=== PATIENT | male | born 1945 | race Caucasian/White ===

== ENCOUNTER 2017-07-04 00:53 | Observation (INO) | payer OTHER ==
--- NOTE | 2017-07-04 00:54 | EDPHY ---
H & P HPI/ROS: HPI CHIEF COMPLAINT: Hypertension, asymptomatic HISTORY OF PRESENT ILLNESS: Patient very pleasant 72-year-old male, presents emergency room with hypertension. States he finished dinner around 9:00 p.m. he felt fine. Decided to take his blood pressure noticed 190 systolic. Denies any chest pain shortness of breath or headache denies focal weakness numbness or tingling. Patient reports that he checked his blood pressure multiple times and soft blood pressures in the 190s. He tells me his normal blood pressure 1 30s. Past Medical History: Denies medical history Past Surgical History: Denies surgical history Social History: Denies daily use of drugs alcohol tobacco products Family History: Noncontributory ROS REVIEW OF SYSTEMS: A comprehensive 10 point review of systems is otherwise negative aside from elements mentioned in the history of present illness. Exam Constitutional appears well nontoxic triage nursing summary reviewed, vital signs reviewed, awake/alert. Eyes normal conjunctivae and sclera, EOMI, PERRLA. HENT normal inspection, atraumatic, moist mucus membranes, no epistaxis, neck supple/ no meningismus, no raccoon eyes. Respiratory clear to auscultation bilaterally, normal breath sounds, no respiratory distress, no wheezing. Cardiovascular rate normal, regular rhythm, no murmur, no edema, distal pulses normal. Gastrointestinal soft, non-tender, no rebound, no guarding, normal bowel sounds, no distension, no pulsatile mass. Genitourinary no CVA tenderness. Musculoskeletal no midline vertebral tenderness, full range of motion, no calf swelling, no tenderness of extremities, no meningismus, good pulses, neurovascularly intact. Skin pink, warm, & dry, no rash, skin atraumatic. Neurologic awake, alert and oriented x 3, AAOx3, moves all 4 extremities equally, motor intact, sensory intact, CN II-XII intact, normal cerebellar, normal vision, normal speech. Psychiatric normal mood/affect. Heme/Lymph/Immune no lymphadenopathy. Differential Diagnosis: Includes but is not limited to in a particular order asymptomatic hypertension, central hypertension, hypertensive urgency, hypertensive emergency Medical Decision Making: Plan for this patient full youth nutritional monitor, IV establishment check basic blood work, EKG, troponin. Will monitor see his blood pressure improved Re-evaluation: EKG interpretation by me on record in [employer] system. Impression time of EKG 1:34 a.m., this is sinus bradycardia rate of 44 I do not appreciate acute ischemic changes specifically no ST elevation ST depression T-wave abnormalities. Unremarkable EKG for except for bradycardia. 0140AM: Patient reports to me that he does have a heart rate of months 40s to 50s. Chemistry panel resulted. Troponin negative, glucose 79, creatinine 0.7, BUN 17 , calcium 9.1, total bili 2, AST 31, alk-phos 60, ALT 41 total protein 6.6. CBC has resulted: This shows white count 7.35, hemoglobin 15.9, hematocrit 48.1 , platelets 198 0249AM: I did re-evaluate the patient this time is resting comfortably has no complaints again denies chest pain headaches or shortness of breath. No numbness tingling. Vital signs at this time is blood pressure is currently 177/ 86, heart rate 45, pulse ox 95% on room air. Given how high his blood pressure is here in emergency room will give him 5 mg p.o. Norvasc. Re-evaluate. 0502AM: I did re-evaluate the patient this time. Blood pressure currently 192/ 86 heart rate 46. He did come down slightly with 5 mg p. o. nor back however he is back up to 100s. Will give him 10 mg IV hydralazine at this time. 0623AM: I did re-evaluate the patient. His blood pressure is down to 160 systolic. He is requesting be discharged home. He tells me feels fine has no complaints. I recommend that he keeps a good blood pressure log twice a day 9: 00 a.m. 9:00 nine p.m. he takes his blood pressure. Keeps a lot of his readings and presents this to his primary care doctor. I will start him on Norvasc 5 mg. if he finds blood pressure too low he should stop this medication otherwise he should continue if he has hypertension. Follow up with his primary care doctor keep a blood pressure log. Additionally understands return emergency room if develops worsening symptoms includes chest pain, headache, very high her blood pressure 1 90s. He is agreeable for this. He would prefer to go home. I did offer admission for observation today for his blood pressure however he has declined. He rather go home start Norvasc follow up with his primary care doctor however he understands return emergency room if he develops worsening symptoms questions or concerns. Source: Patient, EMS - Medical/Surgical History Hx Asthma: No Hx Chronic Respiratory Disease: No Hx Diabetes: No Hx Cardiac Disease: No Hx Renal Disease: No Hx Cirrhosis: No Hx Alcoholism: No Hx HIV/AIDS: No Hx Splenectomy or Spleen Trauma: No Other PMH: HYPERLIPIDEMIA Constitutional: Initial Vital Signs Heart Rate 56 L 07/04/17 05:59 Respiratory Rate 16 07/04/17 05:59 Blood Pressure 166/71 H 07/04/17 05:59 O2 Sat (%) 97 07/04/17 05:59 O2 Delivery Mode Room Air Allergies/Adverse Reactions: No Known Allergies Allergy (Unverified 11/01/13 11:16) Home Medications: Medication Instructions Recorded Cephalexin [Keflex (RX)] 500 mg PO QID #28 cap 11/01/13 Hydrocodone/APAP 5/325 [[place] 1 - 2 tab PO Q4 #12 tab 11/01/13 5/325 (RX)] Lipitor 10 mg (RX) 11/01/13 Sulfamethox/Tmp 800/160 mg 1 tab PO BID #14 tab 11/01/13 [Bactrim Ds (RX)] amLODIPine BESYLATE [Norvasc 5 mg 5 mg PO DAILY #30 tab 07/04/17 (*)] Medical Decision Making - Data Points Laboratory Results: Laboratory Results 07/04/17 00:55 07/04/17 01:00 07/04/17 07/04/17 07/04/17 02:05 01:00 00:55 WBC 7.35 10^3/uL 10^3/uL (3.80-9.50) RBC 5.19 10^6/uL 10^6/uL (4.40-6.38) Hgb 15.9 g/dL g/dL (13.7-17.5) POC Hgb 15.6 gm/dL gm/dL (13.7-17.5) Hct 48.1 % % (40.0-51.0) POC Hct 46 % % (40-51) MCV 92.7 fL fL (81.5-99.8) MCH 30.6 pg pg (27.9-34.1) MCHC 33.1 g/dL g/dL (32.4-36.7) RDW 12.3 % % (11.5-15.2) Plt Count 198 10^3/uL 10^3/uL (150-400) MPV 11.5 fL fL (8.7-11.7) Neut % (Auto) 72.5 % % (39.3-74.2) Lymph % (Auto) 19.0 % % (15.0-45.0) [place] % (Auto) 6.3 % % (4.5-13.0) Eos % (Auto) 1.4 % % (0.6-7.6) Baso % (Auto) 0.5 % % (0.3-1.7) Nucleat RBC Rel Count 0.0 % % (0.0-0.2) Absolute Neuts (auto) 5.33 10^3/uL 10^3/uL (1.70-6.50) Absolute Lymphs (auto) 1.40 10^3/uL 10^3/uL (1.00-3.00) Absolute Monos (auto) 0.46 10^3/uL 10^3/uL (0.30-0.80) Absolute Eos (auto) 0.10 10^3/uL 10^3/uL (0.03-0.40) Absolute Basos (auto) 0.04 10^3/uL 10^3/uL (0.02-0.10) Absolute Nucleated RBC 0.00 10^3/uL 10^3/uL (0-0.01) Immature Gran % 0.3 % % (0.0-1.1) Immature Gran # 0.02 10^3/uL 10^3/uL (0.00-0.10) POC Sodium 141 mEq/L mEq/L (134-144) Sodium Pending POC Potassium 3.5 mEq/L mEq/L (3.3-5.0) Potassium Pending POC Chloride 104 mEq/L mEq/L (97-110) Chloride Pending Carbon Dioxide 25 mEq/l mEq/l (22-31) Anion Gap Pending POC BUN 17 mg/dL mg/dL (7-23) BUN 17 mg/dL mg/dL (7-23) Creatinine 0.7 mg/dL mg/dL (0.7-1.3) POC Creatinine 0.7 mg/dL mg/dL (0.7-1.3) Estimated GFR > 60 Glucose 79 mg/dL mg/dL (70-100) POC Glucose 92 mg/dL mg/dL (70-100) Calcium 9.1 mg/dL mg/dL (8.5-10.4) Troponin I < 0.012 ng/mL ng/mL (0.000-0.034) Point of Care Test Results: 07/04/17 02:05 POC Sodium 141 POC Potassium 3.5 POC Chloride 104 POC BUN 17 POC Creatinine 0.7 POC Glucose 92 Departure - Departure Disposition: Home, Routine, Self-Care Clinical Impression: Hypertension Qualifiers: Hypertension type: essential hypertension Qualified Code(s): I10 - Essential ( primary) hypertension Condition: Fair Instructions: Hypertension (ED) Additional Instructions: 1. Please keep a blood pressure log twice a day 9:00 a.m. 9:00 nine p.m.. 2. Follow up with your primary care doctor. 3. Take her Norvasc as prescribed unless it is making your blood pressure too low or you do not feel good taking it. Referrals: Patient,NotPresent [Unknown] - As per Instructions Prescriptions: amLODIPine BESYLATE [Norvasc 5 mg (*)] 5 mg PO DAILY #30 tab
[2017-07-04 01:11] LABS: % IMMATURE GRANULYOCYTES 0.3 % (0.0-1.1); ABSOLUTE IMMATURE GRANULOCYTES 0.02 10^3/uL (0.00-0.10); ADD DIFF? NO; ADD MORPH? NO; ADD SCAN? NO; ATYPICAL LYMPHOCYTE FLAG 0 (0-99); FRAGMENT RBC FLAG 0 (0-99); HEMATOCRIT 48.1 % (40.0-51.0); HEMOGLOBIN 15.9 g/dL (13.7-17.5); LEFT SHIFT FLG 0 (0-99); LIPEMIA HEMOLYSIS FLAG 80 (0-99); MEAN CELL HEMOGLOBIN 30.6 pg (27.9-34.1); MEAN CELL HEMOGLOBIN CONCENTR. 33.1 g/dL (32.4-36.7); MEAN CELL VOLUME 92.7 fL (81.5-99.8); MEAN PLATELET VOLUME 11.5 fL (8.7-11.7); PLATELET CLUMPS FLAG 10 (0-99); PLATELET COUNT 198 10^3/uL (150-400); RED BLOOD CELL COUNT 5.19 10^6/uL (4.40-6.38); RED CELL DISTRIBUTION WIDTH 12.3 % (11.5-15.2)
--- NOTE | 2017-07-04 01:36 | CPEKG ---
Heart Rate: 44 RR Interval: 1364 P-R Interval: 164 QRSD Interval: 98 QT Interval: 520 QTC Interval: 445 P Bradley: 51 QRS Bradley: 44 T Wave Bradley: 24 EKG Severity - OTHERWISE NORMAL ECG - EKG Impression: SINUS BRADYCARDIA Electronically Signed By: Tristan Bocanegra 04-Jul-2017 07:17:35
[2017-07-04 01:45] LABS: CALCIUM 9.1 mg/dL (8.5-10.4); CARBON DIOXIDE 25 mEq/l (22-31); CREATININE 0.7 mg/dL (0.7-1.3); GLOMERULAR FILTRATION RATE > 60; GLUCOSE 79 mg/dL (70-100)
[2017-07-04] MEDS ORDERED: amLODIPine BESYLATE 5 MG TAB ONE (02:50)
[2017-07-04 04:53] LABS: TROPONIN I < 0.012 ng/mL (0.000-0.034)
[2017-07-04] MEDS ORDERED: hydrALAZINE 20 MG/ML VIAL ONE (05:02)
[2017-07-04 06:17] LABS: ANION GAP 11 mEq/L (8-16); CHLORIDE 102 mEq/L (97-110); POTASSIUM 4.1 mEq/L (3.5-5.2); SODIUM 138 mEq/L (134-144)
[2017-07-04] MEDS ORDERED: hydrALAZINE 20 MG/ML VIAL IVP ONE (06:39)
[2017-07-04] MEDS ORDERED: ONDANSETRON 4 MG/2 ML VIAL IVP PRN (07:10)
[2017-07-04] MEDS ORDERED: ACETAMINOPHEN 325 MG TAB PO PRN (07:10)
[2017-07-04] MEDS ORDERED: ONDANSETRON DISINTEGRATING 4 MG TAB PO PRN (07:10)
--- NOTE | 2017-07-04 08:25 | GHP ---
[f rep st] HISTORY AND PHYSICAL DATE OF ADMISSION: 07/04/2017 CHIEF COMPLAINT: Asymptomatic hypertensive urgency. HISTORY OF PRESENT ILLNESS: A 72-year-old male with past medical history of hyperlipidemia, BPH, status post TURP, who called EMS after he noted his blood pressure was 190s over 80s. He says he checks his blood pressure every other day, but normally runs 140s to 150s. He denies any associated symptoms including chest pain, shortness of breath, nausea, vomiting, headache, blurry vision, numbness, tingling, weakness, or dysarthria. He has talked to his PCP, Dr. Silva, in the past about starting antihypertensive, but has been hesitant with medications. He is very active. He is an avid runner and runs 9-10 miles every other day. He participated in a [employer] a couple of weeks ago. Plans on running a half marathon in a few weeks. Denies any PND, lower extremity edema, cough. REVIEW OF SYSTEMS: I completed a 10-point review of systems. Negative except as noted in HPI. PAST SURGICAL HISTORY: 1. TURP. 2. Nose surgery as a teenager. PAST MEDICAL HISTORY: BPH, hyperlipidemia. FAMILY HISTORY: Mother of old age at 97. Father of hypertension at age 49. SOCIAL HISTORY: From [place] but has been in [place] greater than 30 years. He is . No tobacco. Drinks wine occasionally. MEDICATIONS: Lipitor 10 mg daily, [place] as needed, amlodipine 5 mg daily, but he denied taking currently. ALLERGIES: No known drug allergies. PHYSICAL EXAM: VITAL SIGNS: Blood pressure 190/81 at admission, now 144/73, heart rate in the 50s, respirations 16, 96% on room air. GENERAL: Lying in bed , no acute distress. HEENT: PERRLA. EOMI. Oropharynx clear. Moist mucous membranes. CV: Julio, regular. No murmurs, gallops, or rubs. No lower extremity edema. LUNGS: Clear. No crackles or wheezing. ABDOMEN: Soft, nontender, nondistended. Positive bowel sounds. : No suprapubic tenderness. MUSCULOSKELETAL: 5/5 upper and lower extremity strength. NEURO: 2-12 intact. No focal deficits. PSYCH: Alert and oriented x3, very pleasant. LABS: WBC 7, hemoglobin 15, hematocrit 48, platelets 198. Sodium 141, potassium 3.4, chloride 104, BUN 17, creatinine 0.7, glucose 92. BNP 62. Troponin less than 0.012. EKG is personally reviewed by me. Bradycardic, ST flattening in lead III. ASSESSMENT AND PLAN: 1. Asymptomatic hypertensive urgency: suspect he has been hypertensive for quite some time. I reviewed vitals from prior admission and he had SBP 170. He is hesitant about starting any medications. I explained the risks and benefits of stroke and MA prevention. In the emergency room, he received hydralazine and Norvasc. Blood pressure is now 140s. I would not lower any further at this time, rather gradually over the next couple of days. Amlodipine is a reasonable medication to start with. He has a blood pressure machine at home and has his primary care physician he can follow up with. Troponin and EKG are negative. No evidence of end-organ damage. We will monitor on telemetry and repeat blood pressure. 2. Hyperlipidemia: Continue statin. 3. Diet: Regular. 4. Deep venous thrombosis prophylaxis: Lovenox. 5. Disposition: Patient warrants observation admission given hypertensive urgency warranting blood pressure control and telemetry. /[id number]/MODL MTDD
[2017-07-04] MEDS ORDERED: ENOXAPARIN 40 MG/0.4 ML SYR SC SCH (09:00)
[2017-07-04 12:06] VITALS: TEMP 97.7
[2017-07-04 15:33] VITALS: BP 135/67; PULSE 50; RESP 15; O2SAT 92
--- NOTE | 2017-07-04 15:56 | PDDCSUM ---
Discharge Summary Discharge Summary: 72 yo male admitted for HTN urgency. Presented with BP of 190/80. Now with 130' s systolic, checked several times today. Reports a hx of having her PCP tell him to start BP meds, but he wanted to avoid it. Was started on Amlodipine 2.5 mg. Plans on continuing it until seen by his PCP On the day of discharge, we discussed the option of him staying to obtain a TTE and additional time on tele, but given that he feels better and BP has improved he wants to discharge now. He also has a long hx of sinus bradycardia. baseline HR 40'50's. 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 (consider increasing to 5mg daily) Follow up with PCP in one week Total time spend on discharge is 35 minutes
[2017-07-04] MEDS ORDERED: ATORVASTATIN CALCIUM 10 MG TAB PO SCH (21:00)
[2017-07-05] MEDS ORDERED: VITAMIN B COMPLEX 1 EA CAP/TAB PO SCH (09:00)
[2017-07-05] MEDS ORDERED: CYANO/VITAMIN B12 1000 MCG TAB PO SCH (09:00)
[2017-07-05] MEDS ORDERED: ASPIRIN 81 MG CHEWABLE TAB PO SCH (09:00)
[2017-07-05] MEDS ORDERED: CHOLECALCIFEROL VIT D3 1,000 UNITS TAB PO SCH (09:00)
== END 2017-07-04 16:32 | disposition home or self-care (01) ==
LOC: EDUNIT# → INTOOBSV 06:45 → F2W 08:16
PROVIDERS: ADMIT Internal Medicine; ATTEND Family Medicine
DX: I16.0 Hypertensive urgency (principal); R00.1 Bradycardia, unspecified; R01.1 Cardiac murmur, unspecified; E78.5 Hyperlipidemia, unspecified
CPT/HCPCS: 93005; 96374; 99285; G0378; J0360; 82947-QW

== ENCOUNTER 2017-07-06 10:09 | Emergency (ER) | payer OTHER ==
--- NOTE | 2017-07-06 10:35 | CPEKG ---
Heart Rate: 46 RR Interval: 1304 P-R Interval: 156 QRSD Interval: 100 QT Interval: 500 QTC Interval: 438 P [employer]: 35 QRS [employer]: 42 T Wave [employer]: 27 EKG Severity - ABNORMAL ECG - EKG Impression: SINUS BRADYCARDIA EKG Impression: NONSPECIFIC T ABNORMALITIES, anterior and inferior leads Electronically Signed By: Marc Bryant 08-Jul-2017 08:48:03
--- NOTE | 2017-07-06 10:47 | EDPHY ---
H & P Stated Complaint: HTN Time Seen by Provider: 07/06/17 10:46 HPI/ROS: CHIEF COMPLAINT: Asymptomatic hypertension HISTORY OF PRESENT ILLNESS: The patient presents to the ED with asymptomatic hypertension. The patient was hospitalized yesterday with a systolic blood pressure in the 190 range. The patient was started on amlodipine at that point time. He was discharged home with instructions to take 2.5 mg daily. Today the patient woke up in his blood pressure was 186/90. He took a total of 5 mg of amlodipine. The patient denies any chest pain or shortness of breath. He denies any acute numbness or weakness. The time of his arrival in emergency department his blood pressure is now in the 150-160 systolic range. The patient is scheduled to see primary care later this afternoon. REVIEW OF SYSTEMS: A comprehensive 10 point review of systems is otherwise negative aside from elements mentioned in the history of present illness. Source: Patient Exam Limitations: No limitations - Personal History Current Tetanus/Diphtheria Vaccine: Yes Current Tetanus Diphtheria and Acellular Pertussis (TDAP): Yes - Medical/Surgical History Hx Asthma: No Hx Chronic Respiratory Disease: No Hx Diabetes: No Hx Cardiac Disease: No Hx Renal Disease: No Hx Cirrhosis: No Hx Alcoholism: No Hx HIV/AIDS: No Hx Splenectomy or Spleen Trauma: No Other PMH: HYPERLIPIDEMIA, TURP - Social History Smoking Status: Never smoked - Physical Exam Exam: General Appearance: Alert, no distress Eyes: Pupils equal and round no pallor or injection ENT, Mouth: Mucous membranes moist Respiratory: There are no retractions, lungs are clear to auscultation Cardiovascular: Regular rate and rhythm Gastrointestinal: Abdomen is soft and nontender, no masses, bowel sounds normal Neurological: A&O, normal motor function, normal sensory exam, normal cranial nerves Skin: Warm and dry, no rashes Musculoskeletal: Neck is supple nontender Extremities: symmetrical, full range of motion Constitutional: Initial Vital Signs Temperature (C) 36.8 C 07/06/17 10:09 Heart Rate 50 L 07/06/17 10:09 Respiratory Rate 16 07/06/17 10:09 Blood Pressure 209/77 H 07/06/17 10:09 O2 Sat (%) 97 07/06/17 10:09 O2 Delivery Mode Room Air Allergies/Adverse Reactions: No Known Allergies Allergy (Unverified 11/01/13 11:16) Home Medications: Medication Instructions Recorded Atorvastatin Calcium [Lipitor 10 10 mg PO HS 11/01/13 mg (*)] Aspirin [Aspirin 81mg (*)] 81 mg PO DAILY 07/04/17 Cholecalciferol Vit D3 [Vitamin D3 1,000 units PO DAILY 07/04/17 (*)] Cyanocobalamin [Vitamin B12 (*)] 5,000 mcg PO DAILY 07/04/17 Herbals/Supplements -Info Only 1 ea PO DAILY 07/04/17 Vitamin B Complex [B Complex] 1 each PO DAILY 07/04/17 amLODIPine BESYLATE [Norvasc 2.5 2.5 mg PO DAILY #30 tab 07/04/17 mg (*)] Medical Decision Making ED Course/Re-evaluation: The patient presents the emergency department with isolated systolic hypertension. The patient was noted to be hypertensive upon arrival at triage. His blood pressure has been checked several times in the department and is currently in the 150-160 range. The patient has no acute neurologic complaints. He has no complaints of chest pain or shortness of breath. He is otherwise well-appearing. The patient has been instructed to continue Norvasc at a 5 mg daily dose. He will follow up with his primary care provider this afternoon to discuss the frequency of his blood pressure checks at home as well as follow-up instructions. The patient is instructed to return to the ED for elevated blood pressure in the setting of chest pain, shortness of breath or acute neurologic symptoms. He will also return to the ED for blood pressure persistently greater than 180/110. Departure - Departure Disposition: Home, Routine, Self-Care Clinical Impression: Hypertension Qualifiers: Hypertension type: essential hypertension Qualified Code(s): I10 - Essential ( primary) hypertension Condition: Good Instructions: Hypertension (ED) Additional Instructions: 1. Please follow up with Dr. Moncada as scheduled today to review your newly diagnosed hypertension, blood pressure medications and the frequency at which she should be checking your blood pressure. 2. Please return to the ED for any chest pain, shortness of breath, headache, numbness, weakness, blood pressure persistently greater than 180/110 or other concerns. Referrals: Chelsey Silva MD [Primary Care Provider] - As per Instructions
[2017-07-06 11:05] VITALS: RESP 18
[2017-07-06 11:47] VITALS: BP 170/77; PULSE 42; TEMP 98.4; O2SAT 97
== END 2017-07-06 11:36 | disposition home or self-care (01) ==
DX: I10 Essential (primary) hypertension (principal); Z79.82 Long term (current) use of aspirin

== ENCOUNTER 2017-09-14 15:33 | Emergency (ER) | payer OTHER ==
[2017-09-14 15:45] VITALS: BP 185/68; PULSE 44; RESP 17; TEMP 97.5; O2SAT 96
--- NOTE | 2017-09-14 17:13 | EDPHY ---
H & P Time Seen by Provider: 09/14/17 16:42 HPI/ROS: CHIEF COMPLAINT: Head injury HISTORY OF PRESENT ILLNESS: Patient is a 72-year-old male who presents to the emergency department with discoloration around his eye. The patient bumped his head while running. His head struck a branch. He did not lose consciousness. He denies any significant headache. He was able to continue was run without difficulty. He had a large hematoma on his forehead and abrasion over his nose. He presents emergency department today because he noticed discoloration around the medial aspect of his eye. This does not include is globe. He has no visual change or pain with eye movement. He denies any headache, nose pain or breathing difficulty. He has no nausea or vomiting. No neck pain. The patient takes baby aspirin daily. REVIEW OF SYSTEMS: My complete review of systems is negative except as mentioned in the HPI. Past Medical/Surgical History: Hyperlipidemia, TURP Social history: The patient does not smoke Smoking Status: Never smoked Physical Exam: Vitals noted GENERAL: Well-appearing, in no acute distress, alert. HEENT: patient has mild bruising around the medial aspect of his right eye. He also has a small hematoma over his right brow. The bruise appears to be old in color. He has no bony tenderness to palpation. No facial bone tenderness. Extraocular movements are intact with no discomfort. PERRLA. NECK: No thyromegaly, no lymphadenopathy, supple. No spinal tenderness RESPIRATORY: No respiratory distress CVS: Normal perfusion. SKIN: Normal color, no rash, warm, dry. No pallor. EXTREMITIES: Normal appearing. Standing at the bedside without difficulty. NEURO/PSYCH: Alert and oriented x3, GCS 15, normal mood and affect, normal motor sensory exam. No obvious cranial nerve deficit. Constitutional: Initial Vital Signs Temperature (C) 36.4 C 09/14/17 15:38 Heart Rate 44 L 09/14/17 15:38 Respiratory Rate 17 09/14/17 15:38 Blood Pressure 185/68 H 09/14/17 15:38 O2 Sat (%) 96 09/14/17 15:38 O2 Delivery Mode Room Air Allergies/Adverse Reactions: No Known Allergies Allergy (Unverified 11/01/13 11:16) Home Medications: Medication Instructions Recorded Atorvastatin Calcium [Lipitor 10 10 mg PO HS 01/04/14 mg (*)] Aspirin [Aspirin 81mg (*)] 81 mg PO DAILY 07/04/17 Cholecalciferol Vit D3 [Vitamin D3 1,000 units PO DAILY 07/04/17 (*)] Cyanocobalamin [Vitamin B12 (*)] 5,000 mcg PO DAILY 07/04/17 Herbals/Supplements -Info Only 1 ea PO DAILY 07/04/17 Vitamin B Complex [B Complex] 1 each PO DAILY 07/04/17 amLODIPine BESYLATE [Norvasc 2.5 2.5 mg PO DAILY #30 tab 07/04/17 mg (*)] Medical Decision Making ED Course/Re-evaluation: In the emergency department I discussed possible etiologies with the patient. Do not feel he needs further imaging at this time. He has no facial bone tenderness. He did not lose consciousness. He has no headache. He was concerned about the discoloration. I feel this is secondary to the hematoma that is draining down to the medial aspect of his eye. I doubt globe injury. Differential Diagnosis: My differential includes but is not limited to hematoma, facial fracture, subarachnoid hemorrhage, subdural hematoma, epidural hematoma, globe injury Departure - Departure Disposition: Home, Routine, Self-Care Clinical Impression: Hematoma Contusion Qualifiers: Encounter type: initial encounter Contusion area: head Contusion of head detail : other part of head Qualified Code(s): S00.83XA - Contusion of other part of head, initial encounter Condition: Good Instructions: Hematoma (ED), Contusion in Adults (ED) Additional Instructions: Return with increasing headache, visual change, vomiting or any other concerns. Referrals: Chelsey Silva MD [Primary Care Provider] - 3-4 days, if not improved
== END 2017-09-14 17:26 | disposition home or self-care (01) ==
DX: S00.83XA Contusion of other part of head, initial encounter (principal); Z79.82 Long term (current) use of aspirin; W22.8XXA Striking against or struck by other objects, initial encounter; Y99.8 Other external cause status; Y93.02 Activity, running

== ENCOUNTER 2019-01-05 13:02 | Emergency (ER) | payer OTHER ==
--- NOTE | 2019-01-05 13:56 | EDPHY ---
H & P Stated Complaint: l thumb redness and swelling Time Seen by Provider: 01/05/19 13:46 HPI/ROS: HPI: This is a 73-year-old male who presents with Chief Complaint: Left thumb swelling and redness Location: Left thumb Quality: Swelling redness Duration: 3-4 days Signs and Symptoms: No bleeding, no radiation, no numbness, no weakness, no tingling, no incontinence, no decreased range of motion, + swelling, + pain, no fever, + skin color changes Timing: Worsening Severity: Moderate Context: Patient is right-hand dominant, presents with left thumb redness and swelling with tenderness to palpation that has worsened over the last 3-4 days. Patient reports that his left thumb was throbbing last night and he cannot sleep. He reports that he was washing dishes and believes that 1 of the silverware went up underneath his nail several days ago. Denies fever, radiation, weakness, discharge. No history of diabetes mellitus Modifying Factors: None Comment: ROS: A comprehensive 10 system review of systems is otherwise negative aside from elements mentioned in the history of present illness. MEDICAL/SURGICAL/SOCIAL HISTORY: Medical history: Hypertension, hyperlipidemia Surgical history: TURP Social history: , retired. Nonsmoker. CONSTITUTIONAL: Extremely polite and cooperative elderly white male, at bedside, awake and alert, no obvious distress HEENT: Atraumatic and normocephalic, PERRL, EOMI. Nares patent; no rhinorrhea; no nasal mucosal edema. Tympanic membranes clear. Oropharynx clear, no exudate and moist pink mucosa. Airway patent. No lymphadenopathy. No meningismus. Cardiovascular: Normal S1/S2, regular rate, regular rhythm, without murmur rub or gallop. PULMONARY/CHEST: Symmetrical and nontender. Clear to auscultation bilaterally. Good air movement. No accessory muscle usage. ABDOMEN: Soft, nondistended, nontender, no rebound, no guarding, no peritoneal signs, no masses or organomegaly. No CVAT. EXTREMITIES: 2/2 pulses, strength 5/5, left thumb shows distal tip shows erythema, edema and pain of the distal nail fold with fluctuant area noted that is whitish in color. DI P, PIP, MCP joints have good flexion and extension. No redness or streaking up into the hand. no deformities, no clubbing, no cyanosis or edema. NEUROLOGICAL: no focal neuro deficits. GCS 15. SKIN: Warm and dry, no erythema. no rash. Good capillary refill. Source: Patient Exam Limitations: No limitations - Personal History Current Tetanus Diphtheria and Acellular Pertussis (TDAP): Yes - Medical/Surgical History Hx Asthma: No Hx Chronic Respiratory Disease: No Hx Diabetes: No Hx Cardiac Disease: No Hx Renal Disease: No Hx Cirrhosis: No Hx Alcoholism: No Hx HIV/AIDS: No Hx Splenectomy or Spleen Trauma: No Other PMH: HYPERLIPIDEMIA, TURP - Social History Smoking Status: Never smoked Constitutional: Initial Vital Signs Temperature (C) 36.4 C 01/05/19 13:11 Heart Rate 50 L 01/05/19 13:11 Respiratory Rate 18 01/05/19 13:11 Blood Pressure 162/81 H 01/05/19 13:11 O2 Sat (%) 96 01/05/19 13:11 O2 Delivery Mode Room Air Allergies/Adverse Reactions: No Known Allergies Allergy (Verified 01/05/19 13:09) Home Medications: Medication Instructions Recorded Atorvastatin Calcium [Lipitor 10 10 mg PO HS 11/01/13 mg (*)] Aspirin [Aspirin 81mg (*)] 81 mg PO DAILY 07/04/17 Cholecalciferol Vit D3 [Vitamin D3 1,000 units PO DAILY 07/04/17 (*)] Cyanocobalamin [Vitamin B12 (*)] 5,000 mcg PO DAILY 07/04/17 Herbals/Supplements -Info Only 1 ea PO DAILY 07/04/17 Vitamin B Complex [B Complex] 1 each PO DAILY 07/04/17 Amoxicillin/Clavulanate Pot 875 mg PO BID #14 tab 01/05/19 [Augmentin 875 MG TAB (*)] Losartan Potassium 01/05/19 Medical Decision Making Procedures: Procedure: Paronychia drainage. The patient's abscess was located on the distal tip of the left thumb. I obtained verbal consent from the patient to drain the abscess who was informed about the possibility of bleeding and pain. Digital block performed with 6 mL of 1% lidocaine without epinephrine. The abscess was incised with 18 gauge needle and a 3 mL amount of purulent drainage was expressed. I soaked the wound in a solution of 50% normal saline and 50% Betadine. Clean sterile dressing applied. The patient tolerated the procedure well. The procedure was performed by myself. ED Course/Re-evaluation: Vital signs reviewed and show elevated blood pressure. Digital block performed and paronychia drained Given Percocet and Augmentin Soaked in a solution of Betadine and normal saline Clean sterile dressing applied Verbal written wound care instructions provided. Prescription for Augmentin. Wound check with PCP next week. No signs of neurovascular compromise/tenting of skin/compartment syndrome/ extremities and joints examined above and below area of concern and are neurovascularly intact/tenosynovitis. This patient was seen under the supervision of my primary supervising physician. I evaluated care for this patient independently. Differential Diagnosis: Differential diagnosis includes but is not limited to paronychia, tenosynovitis , abscess. - Data Points Medications Given: Discontinued Medications Amoxicillin/Clavulanate Potassium (Augmentin 875mg) 875 mg PO EDNOW ONE PRN Reason: Protocol Stop: 01/05/19 13:59 Last Admin: 01/05/19 14:05 Dose: 875 mg Oxycodone/Acetaminophen (Percocet 5/325) 1 tab PO EDNOW ONE Stop: 01/05/19 14:08 Last Admin: 01/05/19 14:09 Dose: 1 tab Departure - Departure Disposition: Home, Routine, Self-Care Clinical Impression: Paronychia of finger of left hand Condition: Good Instructions: Paronychia (ED) Additional Instructions: Keep the dressing dry and in place for 48 hours. After 48 hours, you may remove the dressing; wash the site daily with mild soap and water; then pat dry. Take Tylenol 650 mg every 4 hours and/or Ibuprofen 600 mg every 8 hours with food as needed for pain. Take antibiotic as directed. Do not skip a dose. Do not soak hands in dish water or swim until finger infection has completely healed. Wound check with primary care provider within 3-5 days. Referrals: Angeline Moncada MD [Primary Care Provider] - As per Instructions Prescriptions: Amoxicillin/Clavulanate Pot [Augmentin 875 MG TAB (*)] 875 mg PO BID #14 tab
[2019-01-05] MEDS ORDERED: AMOXICILLIN/CLAVULANATE POT 875/125 MG TAB PO ONE (13:58)
[2019-01-05] MEDS ORDERED: OXYCODONE/APAP 5/325 TAB PO ONE (14:07)
[2019-01-05 15:11] VITALS: BP 198/80
== END 2019-01-05 15:05 | disposition home or self-care (01) ==
PROC: 0H9GXZZ Drainage of Left Hand Skin, External Approach (ICD-10-PCS; principal; 2019-01-05)
DX: L03.012 Cellulitis of left finger (principal); I10 Essential (primary) hypertension; E78.5 Hyperlipidemia, unspecified

== ENCOUNTER → 2019-01-27 | Outpatient (CLI) | payer OTHER | LOC: FIMAGING 13:53 | PROVIDERS: ATTEND Internal Medicine | DX: Z13.820 Encounter for screening for osteoporosis (principal); M81.0 Age-related osteoporosis without current pathological fracture ==